=== PATIENT | male | born 1955 | race Caucasian/White ===

== ENCOUNTER 2022-05-24 18:52 | Inpatient (IN) | payer MEDICAID ==
[~2022-05-24] VITALS: Ht 172.7 cm; Wt 62.6 kg
--- NOTE | 2022-05-24 19:05 | NUR ---
DR. BOYD AT BEDSIDE FOR EVAL.
--- NOTE | 2022-05-24 19:05 | NUR ---
BIBRA[address] FROM [address] FOR C/O GEN BODY WEAKNESS X FEW DAYS. HX ETOH. PT A/OX4. TOLERATING R/A WELL WITH NO SOB. CONNECTED PT TO POX AND MONITOR.
--- NOTE | 2022-05-24 19:16 | NUR ---
MALT HOUSE KILN OPERATOR AT PT'S BEDSIDE
--- NOTE | 2022-05-24 19:28 | NUR ---
LAC #20G S/L BLOOD COLLECTED AND SENT TO LAB
[2022-05-24] MEDS ORDERED: IV NS 0.9% 1,000 ML IV ONE (19:30)
[2022-05-24 19:51] LABS: BASOPHILS # (AUTO) 0.1 K/uL (0.0-0.2); BASOPHILS % (AUTO) 0.8 % (0.0-2.0); EOSINOPHILS % (AUTO) 0.7 % (0.0-6.0); LYMPHOCYTES # (AUTO) 1.5 K/uL (0.8-4.8); LYMPHOCYTES % (AUTO) 12.4 % (20.0-44.0); MEAN CORPUSCULAR HGB CONC 34 g/dl (31.0-36.0); MEAN CORPUSCULAR VOLUME 104 fL (80-96); MONOCYTES # (AUTO) 0.4 K/uL (0.1-1.30); MONOCYTES % (AUTO) 3.3 % (2.0-12.0); NEUTROPHILS # (AUTO) 9.9 K/uL (1.8-8.9); NEUTROPHILS % (AUTO) 82.8 % (43.0-81.0); PLATELET COUNT (AUTO) 430 K/uL (150-450); WHITE BLOOD COUNT (AUTO) 11.9 K/uL (4.3-11.0)
[2022-05-24 19:53] LABS: HEMATOCRIT 16 % (39-51); HEMOGLOBIN 5.5 g/dL (13.5-17.5); RED BLOOD CELL COUNT(AUTO) 1.57 MIL/uL (4.5-6.0)
--- NOTE | 2022-05-24 19:59 | NUR ---
COVID SWAB COLLECTED AND SENT TO LAB
[2022-05-24 20:09] LABS: CALCIUM, SERUM 8.4 mg/dL (8.5-10.1); CREATININE 1.3 mg/dL (0.6-1.3)
--- NOTE | 2022-05-24 20:15 | NUR ---
PT SIGNED BLOOD TRANSFUSION CONSENT FORM; VERBALIZED UNDERSTANDING
[2022-05-24 20:17] LABS: BAND % (MANUAL) 2 % (0.0-5.0); LYMPHOCYTES % (MANUAL) 12 % (16-48); MONOCYTES % (MANUAL) 6 % (0-11.0); NEUTROPHILS % (MANUAL) 80 (42-76)
[2022-05-24 20:43] LABS: POTASSIUM 3.3 mmol/L (3.5-5.1)
[2022-05-24 20:47] LABS: ALBUMIN 2.6 g/dL (3.4-5.0); BILIRUBIN,DIRECT 0.1 mg/dL (0.0-0.2); BILIRUBIN,TOTAL 0.2 mg/dL (0.2-1.0); TOTAL PROTEIN, SERUM 5.8 g/dL (6.4-8.2)
--- NOTE | 2022-05-24 22:30 | NUR ---
RBC BLOOD TRANSFUSION INITIATED HGB 5.5. VSS. WILL MONITOR FOR ADVERSE REACTIONS.
--- NOTE | 2022-05-24 23:00 | NUR ---
NO ADVERSE REACTIONS NOTED AT THIS TIME. PT TOLERATING BLOOD TRANSFUSION WELL. WILL CONTINUE TO MONITOR.
--- NOTE | 2022-05-24 23:20 | NUR ---
MRSA SWAB COLLECTED AND SENT TO LAB. PATIENT'S BELONGINGS LIST DONE.
--- NOTE | 2022-05-24 23:22 | NUR ---
REPORT GIVEN TO PAULA HERNANDEZ RN FOR SHARLA
[2022-05-24] MEDS ORDERED: ONDANSETRON HCL/PF 4 MG/2 ML VIAL IVP PRN (23:30)
--- NOTE | 2022-05-24 23:48 | NUR ---
PT TRANSFERRED TO [facility] VIA ACLS PROTOCOL WITH BLOOD TRANSFUSION. VSS. ALL BELONGINGS WITH PT. PT TOLERATED TRANSFER WELL
--- NOTE | 2022-05-24 23:55 | NUR ---
RN NOTE RECEIVED 66 Y M PATIENT FROM ER A/O X4,TRANSPORTED VIA GURNEY ASSISTED WITH 2 ER STAFF, ON RA TOLERATING WELL, PATIENT ABLE TO MAKE NEEDS KNOWN, ABLE TO AMBULATE WITH ASSIST, IV ACCESS ON LAC #20G WITH PRBC RUNNING AT 100 ML/HR INFUSING WELL, NO COMPLAINTS OF PAIN AT THIS TIME, NO S/SX OF RESPIRATORY DISTRESS, ORIENTED TO THE UNIT, INITIAL PHYSICAL ASSESSMENT DONE, PICTURES TAKEN AND PLACED ON CHART, CALL LIGHT WITHIN REACH, BED IN LOWEST AND LOCKED POSITION, WILL CONT TO MONITOR THROUGHOUT THE SHIFT.
[2022-05-25] VITALS (10 sets, daily range): BP systolic 89–106; BP diastolic 58–73
[2022-05-25] MEDS ORDERED: POTASSIUM CHLORIDE 20 MEQ TAB.PRT.SR PO ONE (00:22)
[2022-05-25] MEDS: IV NS 0.9% 1,000 ML IV PRN (00:25)
--- NOTE | 2022-05-25 02:00 | NUR ---
RN NOTE PRBC TRANSFUSION DONE, PATIENT ABLE TO TOLERATE IT WITHOUT COMPLAINTS OF ADVERSE REACTION. V/S TAKEN AT 98.1, 102/67, 77, RR 20, SATING 100 %. WILL CONT TO MONITOR.
[2022-05-25 07:13] LABS: CREATININE 0.9 mg/dL (0.6-1.3); MAGNESIUM 1.5 mg/dL (1.8-2.4); PHOSPHORUS 3.8 mg/dL (2.5-4.9); POTASSIUM 3.7 mmol/L (3.5-5.1)
[2022-05-25 07:15] LABS: BASOPHILS # (AUTO) 0.1 K/uL (0.0-0.2); BASOPHILS % (AUTO) 0.8 % (0.0-2.0); EOSINOPHILS % (AUTO) 1.3 % (0.0-6.0); LYMPHOCYTES # (AUTO) 1.6 K/uL (0.8-4.8); LYMPHOCYTES % (AUTO) 15.9 % (20.0-44.0); MEAN CORPUSCULAR HGB CONC 35 g/dl (31.0-36.0); MEAN CORPUSCULAR VOLUME 105 fL (80-96); MONOCYTES # (AUTO) 0.3 K/uL (0.1-1.30); MONOCYTES % (AUTO) 2.7 % (2.0-12.0); NEUTROPHILS # (AUTO) 7.9 K/uL (1.8-8.9); NEUTROPHILS % (AUTO) 79.3 % (43.0-81.0); PLATELET COUNT (AUTO) 358 K/uL (150-450); WHITE BLOOD COUNT (AUTO) 9.9 K/uL (4.3-11.0)
[2022-05-25 07:33] LABS: RED BLOOD CELL COUNT(AUTO) 1.62 MIL/uL (4.5-6.0)
[2022-05-25 07:38] LABS: HEMATOCRIT 17 % (39-51)
--- NOTE | 2022-05-25 07:39 | NUR ---
RN OPENING NOTE RECEIVED PATIENT REPORT FROM NIGHTSHIFT RN. PATIENT A/O X4,ON RA TOLERATING WELL, PATIENT ABLE TO MAKE NEEDS KNOWN, ABLE TO AMBULATE WITH ASSIST, IV ACCESS ON LAC #20G INFUSING NORMAL SALINE AT 75 MLS/HR. NO COMPLAINTS OF PAIN AT THIS TIME, NO S/SX OF RESPIRATORY DISTRESS. CALL LIGHT WITHIN REACH, BED IN LOWEST AND LOCKED POSITION, WILL CONTINUE PLAN OF CARE AND ANTICIPATE NEEDS.
[2022-05-25] MEDS: PANTOPRAZOLE 40 MG TABLET.DR PO SCH (08:02)
[2022-05-25] MEDS ORDERED: [UNRECOGNIZED DRUG - REMARK] PO (08:19)
[2022-05-25] MEDS ORDERED: [UNRECOGNIZED DRUG - REMARK] PO (08:19)
[2022-05-25] MEDS ORDERED: ASPI-1169 PO (08:19)
[2022-05-25] MEDS ORDERED: OCTREOTIDE 500 MCG in IV NS 0.9% 99 ML IV PRN (09:30)
[2022-05-25] MEDS ORDERED: Magnesium 1GM/D5W 100ML PREMIX 100 ML IV SCH (10:00)
[2022-05-25] MEDS: OCTREOTIDE 1,250 MCG in IV NS 0.9% 247.5 ML IV PRN (10:22)
--- NOTE | 2022-05-25 10:28 | NUR ---
CLARIFIED WITH PHARMACY THAT WE DONT TITRATE SANDOSTATIN,PER PHARMACIST KEEP IT AT 25MCG/HR= TO 5ML/HR.
[2022-05-25] MEDS: ACETAMINOPHEN 325 MG TABLET PO PRN ×2 (10:39→21:46)
--- NOTE | 2022-05-25 14:55 | NUR ---
SS received consult for homelessness. Will follow-up at a later time.
--- NOTE | 2022-05-25 18:43 | NUR ---
RN CLOSING NOTE PATIENT REMAINS IN BED, A/O X4,ON ROOM AIR WITH OXYGEN SATURATION AT 100%. PATIENT ABLE TO MAKE NEEDS KNOWN, ABLE TO AMBULATE WITH ASSIST, IV ACCESS ON LAC #20G INFUSING NORMAL SALINE AT 75 MLS/HR AND SANDOSTATIN AT 5MCH/HR. NO COMPLAINTS OF PAIN AT THIS TIME, NO S/SX OF RESPIRATORY DISTRESS. CALL LIGHT WITHIN REACH, BED IN LOWEST AND LOCKED POSITION, WILL ENDORSE TO NIGHTSHIFT RN FOR CONTINUATION OF CARE.
--- NOTE | 2022-05-25 19:30 | NUR ---
ECOLOGIST TECHNICIAN OPENING NOTE RECEIVED PATIENT RESTING IN BED, PATIENT A/O X4, ON RA TOLERATING WELL, PATIENT ABLE TO MAKE NEEDS KNOWN, ABLE TO AMBULATE WITH ASSIST, IV ACCESS ON LAC #20G INFUSING NORMAL SALINE AT 75 MLS/HR. NO COMPLAINTS OF PAIN AT THIS TIME, NO S/SX OF RESPIRATORY DISTRESS. CALL LIGHT WITHIN REACH, BED IN LOWEST AND LOCKED POSITION, WILL CONTINUE TO MONITOR THROUGHOUT THE SHIFT.
[2022-05-25 19:55] LABS: HEMOGLOBIN 7.7 g/dL (13.5-17.5)
[2022-05-26] VITALS: BP 99/71
[2022-05-26] MEDS: IV NS 0.9% 1,000 ML IV PRN ×2 (01:21→17:11)
[2022-05-26 04:00] VITALS: BP 106/74
--- NOTE | 2022-05-26 06:44 | NUR ---
CHIEF FISHERY DIVISION CLOSING NOTE NO SIGNIFICANT CHANGES THROUGHOUT THE SHIFT. PATIENT SLEEPING IN BED A/O X4, ON RA TOLERATING WELL, PATIENT ABLE TO MAKE NEEDS KNOWN, ABLE TO AMBULATE WITH ASSIST, IV ACCESS ON LAC #20G INFUSING NORMAL SALINE AT 75 MLS/HR. NO COMPLAINTS OF PAIN NOTED, NO S/SX OF RESPIRATORY DISTRESS AT THIS TIME. ALL NEEDS ATTENDED, KEPT DRY AND CLEAN, CALL LIGHT WITHIN REACH, BED IN LOWEST AND LOCKED POSITION, WILL ENDORSE TO AM SHIFT NURSE.
--- NOTE | 2022-05-26 07:42 | NUR ---
tele marketing executive note patient in bed, alert oriented, on tele monitor sr , patient on ra ,lt ac hl intact and flushed well, on ivf and Sandostatin drip as ordered, bed on ,lowest and locked position , NO SOB NOTED AT THIS TIME, CALL LIGHT WITHIN REACH , WILL CONT TO MONITOR CLOSELY SAFETY MEASURE PROVIDED
[2022-05-26 08:00] VITALS: BP 111/68
[2022-05-26] MEDS: PANTOPRAZOLE 40 MG TABLET.DR PO SCH (08:07)
[2022-05-26 09:39] LABS: BASOPHILS % (AUTO) 0.5 % (0.0-2.0); EOSINOPHILS % (AUTO) 0.9 % (0.0-6.0); HEMATOCRIT 23 % (39-51); HEMOGLOBIN 7.7 g/dL (13.5-17.5); LYMPHOCYTES # (AUTO) 0.9 K/uL (0.8-4.8); LYMPHOCYTES % (AUTO) 11.3 % (20.0-44.0); MEAN CORPUSCULAR HGB CONC 34 g/dl (31.0-36.0); MEAN CORPUSCULAR VOLUME 102 fL (80-96); MONOCYTES # (AUTO) 0.3 K/uL (0.1-1.30); MONOCYTES % (AUTO) 3.2 % (2.0-12.0); NEUTROPHILS # (AUTO) 6.6 K/uL (1.8-8.9); NEUTROPHILS % (AUTO) 84.1 % (43.0-81.0); PLATELET COUNT (AUTO) 343 K/uL (150-450); RED BLOOD CELL COUNT(AUTO) 2.23 MIL/uL (4.5-6.0); WHITE BLOOD COUNT (AUTO) 7.9 K/uL (4.3-11.0)
[2022-05-26 09:58] LABS: CALCIUM, SERUM 8.2 mg/dL (8.5-10.1); CREATININE 0.8 mg/dL (0.6-1.3); POTASSIUM 5.4 mmol/L (3.5-5.1)
--- NOTE | 2022-05-26 10:24 | NUR ---
television specialist note resting comfortably not in distress will monitor
[2022-05-26 12:00] VITALS: BP 108/74
--- NOTE | 2022-05-26 12:17 | NUR ---
telephone operator chief note spoke with dr sanchez notified that k 5.4 with order Kayexalate 30 mg time one , will f]\u
[2022-05-26] MEDS ORDERED: SODIUM POLYSTYRENE SULFONATE 15 G/60 ML BOTTLE PO SCH (12:30)
[2022-05-26] MEDS ORDERED: Magnesium 1GM/D5W 100ML PREMIX 100 ML IV SCH (12:30)
[2022-05-26] MEDS ORDERED: MAGNESIUM OXIDE 400 MG TABLET PO ONE (12:30)
[2022-05-26] MEDS: OCTREOTIDE 1,250 MCG in IV NS 0.9% 247.5 ML IV PRN ×2 (12:44→14:45)
--- NOTE | 2022-05-26 13:03 | NUR ---
EXEC. CREATIVE DIRECTOR NOTE CALLED TO DR KWON NOTIFIED THAT PATIENT HAS DARK COLOR STOOL WITH ORDER CO COLLECT STOOL FOR OB, WILL F\U
--- NOTE | 2022-05-26 13:14 | NUR ---
telecommunication lines repairer note new new chandrakant [address] fa inserted with good blood return
[2022-05-26 16:00] VITALS: BP 118/84
[2022-05-26] MEDS: ENSURE ENLIVE 237 ML LIQUID (VANILLA) PO SCH (17:08)
--- NOTE | 2022-05-26 17:29 | NUR ---
clerk television production note having dinner , able to eat self, cont on ivf as ordered and Sandostatin drip, all needs attended,call light within reach
--- NOTE | 2022-05-26 18:15 | NUR ---
SAND MIXER MACHINE NOTE RESTING IN BED , ALL NEEDS ATTENDED , NOT IN DISTRESS. ON RA ,NO SOB NOTED AT THIS TIME, RESPIRATION EVEN NONLABORED, ON IVF AND SANDOSTATIN DRIP ORDERED,UNABLE TO COLLECT STOOL SAMPLE FOR OB ,WILL ENFORCED NEXT SHIFT RN , CALL LIGHT WITHIN REACH, WILL CONT TO MONITOR
[2022-05-26 20:00] VITALS: BP 108/78
--- NOTE | 2022-05-26 20:09 | NUR ---
HYDROMETEOROLOGICAL TECHNICIAN OPENING NOTES: RECEIVED PATIENT AWAKE IN BED, BED IN LOW POSITION, CALL LIGHT WITHIN REACH, NO COMPLAIN OF PAIN AND DISCOMFORT AT THIS TIME ON ROOM AIR SATURATING WELL, PATIENT WITH RFA#20 WITH ONGOING IV LINE OF NSS@75ML/HR AND SANDOST OF 25ML/HR INFUSING WELL, PATIENT IS AMBULATORY WITH ASSISTANCE FROM BEDSIDE TO COMMODE, PATIENT KEPT CLEAN AND DRY ALL NEEDS MET WILL CONTINUE TO MONITOR.
[2022-05-26] MEDS ORDERED: diphenhydrAMINE HCL 25 MG CAPSULE PO ONE (23:00)
[2022-05-27] VITALS: BP 114/73
[2022-05-27 04:00] VITALS: BP 122/74
[2022-05-27 06:49] LABS: BASOPHILS % (AUTO) 0.6 % (0.0-2.0); EOSINOPHILS % (AUTO) 1.5 % (0.0-6.0); HEMATOCRIT 23 % (39-51); LYMPHOCYTES % (AUTO) 14.9 % (20.0-44.0); MEAN CORPUSCULAR HGB CONC 34 g/dl (31.0-36.0); MEAN CORPUSCULAR VOLUME 103 fL (80-96); MONOCYTES # (AUTO) 0.4 K/uL (0.1-1.30); MONOCYTES % (AUTO) 5.1 % (2.0-12.0); NEUTROPHILS # (AUTO) 5.4 K/uL (1.8-8.9); NEUTROPHILS % (AUTO) 77.9 % (43.0-81.0); PLATELET COUNT (AUTO) 340 K/uL (150-450); RED BLOOD CELL COUNT(AUTO) 2.27 MIL/uL (4.5-6.0); WHITE BLOOD COUNT (AUTO) 6.9 K/uL (4.3-11.0)
--- NOTE | 2022-05-27 06:52 | NUR ---
KNOCKER OFF CLOSING NOTES: PATIENT SLEEP IN BED COMFORTABLY, AROUSABLE TO VERBAL STIMULI, BED IN LOW POSITION CALL LIGHTS WITHIN REACH, ON ROOM AIR SATURATING WELL, NO COMPLAIN OF PAIN AND DISCOMFORT AT THIS TIME, PATIENT ON TELE MONITOR- SB-54, NO SYMPTOMS WAS OBSERVED, KEPT CLEAN AND DRY ALL NEEDS MET ENDORSE TO INCOMING SHIFT.
[2022-05-27 07:15] LABS: CALCIUM, SERUM 8.2 mg/dL (8.5-10.1); CREATININE 0.7 mg/dL (0.6-1.3); MAGNESIUM 1.6 mg/dL (1.8-2.4); POTASSIUM 4.8 mmol/L (3.5-5.1)
--- NOTE | 2022-05-27 07:42 | NUR ---
CLINICAL NURSE LEADER OPENING NOTE PATIENT IN BED. PATIENT IS ALERT AND ORIENTED X4.PATIENT COMPLAINS OF NO PAIN. PATIENT IS ON ROOM AIR.PATIENT HAS IV ON LEFT AC 20 GAUGE. ALL SAFETY MEASURES. CALL LIGHT WITHIN REACH,BED LOCKED IN LOWEST POSITION. SIDE RAILS UPX2.
[2022-05-27] MEDS: IV NS 0.9% 1,000 ML IV PRN (07:54)
[2022-05-27 08:00] VITALS: BP 106/71
[2022-05-27] MEDS: PANTOPRAZOLE 40 MG TABLET.DR PO SCH (08:04)
[2022-05-27] MEDS: ENSURE ENLIVE 237 ML LIQUID (VANILLA) PO SCH ×2 (08:05→17:13)
[2022-05-27] MEDS ORDERED: MAGNESIUM OXIDE 400 MG TABLET PO ONE (10:00)
[2022-05-27 12:00] VITALS: BP 115/86
[2022-05-27] MEDS ORDERED: ANESTHESIA TRAY IN PYXIS 1 EA TRAY MC ONE (12:36)
--- NOTE | 2022-05-27 13:16 | NUR ---
telephone advice nurse note Dr. tovar ordered EGD. obtain consent for EGD. NPO after midnight
[2022-05-27] MEDS: OCTREOTIDE 1,250 MCG in IV NS 0.9% 247.5 ML IV PRN (14:28)
--- NOTE | 2022-05-27 14:36 | NUR ---
"SS Note: SS consult requested for homelessness. Pt. Is a 66-year-old male. Per EMR, pt. was brought in by ambulance for generalized weakness. Pt. presents alert and oriented x4 (self, place, time, situation). Pt. appeared groomed, made appropriate eye-contact, and was cooperative during interview. Pt. reported no hx of mental health. Pt. denies suicidal ideation and homicidal ideation. Pt. reported no auditory hallucinations, visual hallucinations, paranoia, or delusions. SW explored pt.s substance use. Per pt., he drinks a pint of liquor a day. Pt. stated that this been going on for years, but he does not want to get help. Pt. is homeless but stays with a friend or brother Reji when he can. Per pt., once he gets discharge, he will go back to his brothers house. Pt. receives adequate support from his brother. Pt. is ambulatory and is independent his ADLs. Plan: SW provided available resources and pt. accepted. SW explained the retirement intake process, pt. expressed understanding. Once discharge, per pt., [facility] Resources Provided: Year-round shelters: [place] [address] [place] [address] ; [place] [facility] [address] [place] [address]; [facility] [id number] [facility] [address] Winter Shelters: [facility] Provider: [facility] Address: [address] [place] [address], [facility] # of Beds: 47 Population Served: [facility] 6 | [facility] Katelin Cummings [place] Provider: [facility] Address: [address], [address] # of Beds: 66 Population Served: [facility] [place] Provider: [facility] Address: [address] [facility], [address] # of Beds: 56 Population Served: [facility] [place] Provider: / [facility] Address: [address] [facility], [address] # of Beds: 49 Population Served: [facility] 8 | [place] Provider: [facility] Address: [facility]5 [facility] Gibbs # of Beds: 37 Population Served: [facility] Hygiene: [facility]: [address] [place] ; [place] [facility] [address] [facility] ; [facility] [address] [facility] . Food Resources: [place] [facility] at [facility]- [address] [place]; Meet Each Need with Dignity ([facility]) [address] [facility]; [facility] Food Pantry [address] [facility]; [facility] [address] [facility]. Mental Health resources provided: [facility] [address] [place], [place] [id number] ; [facility] [address] [facility] [address], [place], [place] [phone] ; [facility] [address] [place], [place] [phone] ; [facility] [address] [place], [place] [phone] Healthcare Clinics: [facility] [address] [facility], [address] [place]. [place] ; [facility] [address] [facility] [address] [place] [address]; [facility] Health [place] [address] [facility]. [place] [phone] Counseling--Outpatient [facility] [address] [facility], [address] [place], [place] [address] (Specializes in in-depth psychotherapy for emotional distress: anxiety, depression, interpersonal conflicts, life transitions, childhood abuse) [facility] [address] [place] [address] (Assist with solving problem marital difficulties, separation & divorce, aging parents, & grief, chronic & terminal illness) [facility] [address] [place], [place] [address] (Deal with loss & grief, anxiety, marital difficulties) Homebound/Mental Health Services [address] [facility] [address] [place], [place] [phone] (Provide in-home mental services to people who are incapable of leaving their homes) [facility] Needs of the Elderly Senior Service/Resource Center [address] [place] [address] [facility] [address] [place], [place] [address] PSYCHIATRIC OUTPATIENT SERVICES [facility] Partial Hospitalization and Intensive Outpatient Program (Managed Care and [facility] Only)[address] [address] [facility] [phone] [facility] Partial Hospitalization and Outpatient [id number] [facility] [address] [place], [place] [phone] [facility] [place] Axq[address] [facility] [address] [place], [place] [phone] [facility] Partial Hospitalization and Outpatient [id number] [place], [phone] Substance Abuse resources provided included: [facility] Substance Abuse Self-Helpline (SASH) ; [facility]LP [address] [facility]. [place] [address] ; [facility] [address] [facility] [address] ; [facility] [address] [facility] [address] ; [facility] [address] [facility] [address] ; [facility] 49[address] Ye[address]avez [facility] [phone] ; [facility] [address] [facility] [phone] ; [facility] Substance Abuse Helpline(SAS)[facility] [place] ; [facility] ; [facility] [place]; [facility] [place]; [facility] [place]; [facility] Yeison Chavez; [facility] [place]; [place] [facility]; [facility] [place]; [facility] [place], [facility]. [facility] Saira; Alcoholics Anonymous -SFV; Ia-Uwnh-Kupfpac ; Marijuana Anonymous -SFV; Narcotics Anonymous www.na.org;"
--- NOTE | 2022-05-27 15:48 | NUR ---
telemarketing sales representative note resting comfortably at this time using urinal well ,not in distress
[2022-05-27 16:00] VITALS: BP 125/87
--- NOTE | 2022-05-27 18:47 | NUR ---
CLIN NURSE SPEC CLOSING NOTE PATIENT IN BED. PATIENT IS ALERT AND ORIENTED X4.PATIENT COMPLAINS OF NO PAIN. PATIENT IS ON ROOM AIR 100 %. PATIENT IS ON TELE MONITOR SINUS RHYTHM. PATIENT HAS URINAL AT BEDSIDE.PATIENT HAS LOWER LEG SCAB. PATIENT HAS SANDUST RUNNING AT 25ML/HR. PATIENT HAS IV ON RIGHT AC 20 GAUGE. IV PATENT AND FLUSHING WELL. PATIENT IS NPO AFTER MIDNIGHT FOR EGD.ALL SAFETY MEASURES. CALL LIGHT WITHIN REACH,BED LOCKED IN LOWEST POSITION. SIDE RAILS UPX2.
--- NOTE | 2022-05-27 19:30 | NUR ---
TELE/RN OPENING NOTE RECEIVED PATIENT RESTING IN BED. AWAKE, ALERT AND ORIENTED X 4. ABLE TO MAKE NEEDS KNOWN. DENIES PAIN AT THIS TIME. CONTINUES ON ROOM AIR WITH NO S/SX OF RESPIRATORY DISTRESS NOTED. IV ACCESS TO RIGHT FOREARM #24G INTACT AND PATENT. CONTINUES ON IVF NS @ 75ML/HR. CONTINUES ON SANDOSTATIN IV @ 25ML/HR. PATIENT TO BE NPO POST MIDNIGHT FOR PLANNED EGD PROCEDURE IN AM. PATIENT AWARE AND AGREEABLE. CONSENT IS IN CHART. CALL LIGHT WITHIN REACH. ASPIRATION, FALL AND SAFETY PRECAUTIONS MAINTAINED. ALL NEEDS ATTENDED TO AT THIS TIME.
[2022-05-27 20:00] VITALS: BP 124/90
[2022-05-27] MEDS: TEMAZEPAM 7.5 MG CAPSULE PO PRN (21:44)
--- NOTE | 2022-05-27 22:30 | NUR ---
TELE/RN NOTE PATIENT REQUESTING SLEEPING MEDICATION. NOTIFIED COMPLETION SUPERVISOR TILE SORTER EMEKA WITH NEW ORDER FOR TEMAZEPAM 7.5MG PO QHS PRN. ORDER INPUTTED AND CARRIED OUT.
--- NOTE | 2022-05-27 23:00 | NUR ---
TELE/RN NOTE SECOND PIV PLACED TO LEFT FOREARM #20G FOR PROCEDURE IN AM. PATIENT TOLERATED WELL. IV SITE FLUSHES GOOD. REINFORCED DRESSING. BOTH IV MEDS INFUSING THROUGH RIGHT FOREARM IV.
[2022-05-28] VITALS (7 sets, daily range): BP systolic 101–132; BP diastolic 64–92
--- NOTE | 2022-05-28 02:00 | NUR ---
TELE/RN NOTE COLLECTED STOOL SAMPLE FOR OCCULT BLOOD. PLACED IN LAB [place].
--- NOTE | 2022-05-28 06:20 | NUR ---
TELE/RN CLOSING NOTE PATIENT CURRENTLY SLEEPING IN BED. ALERT AND ORIENTED X 4. ABLE TO MAKE NEEDS KNOWN. DENIES PAIN AT THIS TIME. CONTINUES ON ROOM AIR WITH NO S/SX OF RESPIRATORY DISTRESS NOTED. IV ACCESS TO RIGHT FOREARM #24G AND LEFT FOREARM #20G BOTH INTACT AND PATENT. CONTINUES ON IVF NS @ 75ML/HR. CONTINUES ON SANDOSTATIN IV @ 25ML/HR. CONTINUES ON NPO STATUS FOR PLANNED EGD PROCEDURE IN TODAY. CONSENT AND SURGICAL CHECKLIST IN CHART. CALL LIGHT WITHIN REACH. ASPIRATION, FALL AND SAFETY PRECAUTIONS MAINTAINED. WILL ENDORSE PLAN OF CARE TO ONCOMING SHIFT RN.
[2022-05-28 06:35] LABS: BASOPHILS # (AUTO) 0.1 K/uL (0.0-0.2); BASOPHILS % (AUTO) 0.7 % (0.0-2.0); EOSINOPHILS % (AUTO) 1.7 % (0.0-6.0); HEMATOCRIT 24 % (39-51); HEMOGLOBIN 8.2 g/dL (13.5-17.5); LYMPHOCYTES # (AUTO) 0.7 K/uL (0.8-4.8); LYMPHOCYTES % (AUTO) 9.9 % (20.0-44.0); MEAN CORPUSCULAR HGB CONC 35 g/dl (31.0-36.0); MEAN CORPUSCULAR VOLUME 103 fL (80-96); MONOCYTES # (AUTO) 0.3 K/uL (0.1-1.30); MONOCYTES % (AUTO) 4.5 % (2.0-12.0); NEUTROPHILS # (AUTO) 6.1 K/uL (1.8-8.9); NEUTROPHILS % (AUTO) 83.2 % (43.0-81.0); PLATELET COUNT (AUTO) 287 K/uL (150-450); RED BLOOD CELL COUNT(AUTO) 2.29 MIL/uL (4.5-6.0); WHITE BLOOD COUNT (AUTO) 7.3 K/uL (4.3-11.0)
[2022-05-28] MEDS: IV NS 0.9% 1,000 ML IV PRN (06:35)
[2022-05-28 06:48] LABS: CALCIUM, SERUM 8.3 mg/dL (8.5-10.1); CREATININE 0.6 mg/dL (0.6-1.3); POTASSIUM 4.1 mmol/L (3.5-5.1)
[2022-05-28] MEDS: PANTOPRAZOLE 40 MG TABLET.DR PO SCH (07:30)
--- NOTE | 2022-05-28 07:30 | NUR ---
RN OPENING NOTE PATIENT IS AWAKE IN BED, ALERT AND ORIENTED X 4. ON ROOM AIR,WITH OXYGEN SATURATION AT 98%. SINUS RHYTHM ON ORTHOTIC PRACTITIONER. WITH LEFT FOREARM 20G SALINE LOCK, INTACT AND PATENT. WITH RIGHT FOREARM GAUGE 24 IV LINE INFUSING WITH NS AT 75 ML/HR AND SANDOSTATIN AT 25 ML/HR. DENIES PAIN, BREATHING UNLABORED AND NOT IN ANY FORM OF DISTRESS. BED IS LOCKED IN LOWEST POSITION, 3 SIDE RAILS UP, CALL LIGHT WITHIN REACH. WILL CONTINUE TO MONITOR THROUGHOUT SHIFT.
[2022-05-28] MEDS: ENSURE ENLIVE 237 ML LIQUID (VANILLA) PO SCH ×2 (08:00→17:51)
[2022-05-28 08:12] LABS: ALBUMIN 2.3 g/dL (3.4-5.0); BILIRUBIN,DIRECT 0.1 mg/dL (0.0-0.2); BILIRUBIN,TOTAL 0.3 mg/dL (0.2-1.0); TOTAL PROTEIN, SERUM 5.4 g/dL (6.4-8.2)
--- NOTE | 2022-05-28 09:00 | NUR ---
RN NOTE PATIENT LEFT THE UNIT FOR EGD PROCEDURE ACCOMPANIED BY 2 OR STAFF. PATIENT IN STABLE CONDITION.
--- NOTE | 2022-05-28 10:30 | NUR ---
RN NOTE RECEIVED PATIENT FROM OR FOLLOWING EGD PROCEDURE. PATIENT IN STABLE CONDITION.
[2022-05-28 11:49] LABS: OCCULT BLOOD STOOL POSITIVE (NEGATIVE)
[2022-05-28] MEDS: OCTREOTIDE 1,250 MCG in IV NS 0.9% 247.5 ML IV PRN (16:27)
--- NOTE | 2022-05-28 18:37 | NUR ---
RN CLOSING NOTE PATIENT IS RESTING COMFORTABLY IN BED AND REMAINED IN STABLE CONDITION. TOLERATES ROOM AIR, WITH O2 SATURATION AT 99%. DENIES PAIN, BREATHING UNLABORED AND NOT IN ANY FORM OF DISTRESS. IV LINE ON BOTH ARMS INTACT AND PATENT. BED IS LOCKED IN LOWEST POSITION, 3 SIDE RAILS UP, CALL LIGHT WITHIN REACH. WILL ENDORSE TO CREDIT VERIFICATION CLERK NURSE.
--- NOTE | 2022-05-28 19:20 | NUR ---
RN NOTE PT AWAKE IN BED, WATCHING TV. A/OX4. RESPIRATIONS EVEN/UNLABORED. PT DENIES PAIN AT THIS TIME. IV SITE: L-FA #20G AND R-FA #24G BOTH INTACT/PATENT, INFUSING IVF NS @75ML/HR AND ON SANDOSTATIN 25MCG/HR. ON TELE MONITOR, READING SB, HR 55. PT IN NO ACUTE DISTRESS. SAFETY MEASURES IN PLACE, BED IN LOWEST LOCKED POSITION, S/R UPX2, CALL LIGHT WITHIN REACH. WILL CONT TO MONITOR.
[2022-05-28] MEDS: TEMAZEPAM 7.5 MG CAPSULE PO PRN (21:37)
[2022-05-29] VITALS: BP 130/82
[2022-05-29] MEDS: IV NS 0.9% 1,000 ML IV PRN (00:14)
[2022-05-29 04:00] VITALS: BP 121/92
--- NOTE | 2022-05-29 07:10 | NUR ---
RN NOTE PT RESTING IN BED, EASILY AROUSABLE TO STIMULI. DENIES PAIN, DENIES SOB. PT SLEPT WELL DURING THE NIGHT. NO ACUTE DISTRESS NOTED. ALL NEEDS ATTENDED TO. SAFETY MEASURES MAINTAINED.
[2022-05-29 07:24] LABS: BASOPHILS % (AUTO) 0.5 % (0.0-2.0); EOSINOPHILS % (AUTO) 3.5 % (0.0-6.0); HEMATOCRIT 22 % (39-51); HEMOGLOBIN 7.6 g/dL (13.5-17.5); LYMPHOCYTES # (AUTO) 0.9 K/uL (0.8-4.8); LYMPHOCYTES % (AUTO) 13.5 % (20.0-44.0); MEAN CORPUSCULAR HGB CONC 35 g/dl (31.0-36.0); MEAN CORPUSCULAR VOLUME 102 fL (80-96); MONOCYTES # (AUTO) 0.4 K/uL (0.1-1.30); NEUTROPHILS # (AUTO) 4.9 K/uL (1.8-8.9); NEUTROPHILS % (AUTO) 76.5 % (43.0-81.0); PLATELET COUNT (AUTO) 280 K/uL (150-450); RED BLOOD CELL COUNT(AUTO) 2.17 MIL/uL (4.5-6.0); WHITE BLOOD COUNT (AUTO) 6.3 K/uL (4.3-11.0)
[2022-05-29 07:47] LABS: CALCIUM, SERUM 7.4 mg/dL (8.5-10.1); CREATININE 0.6 mg/dL (0.6-1.3); POTASSIUM 4.1 mmol/L (3.5-5.1)
[2022-05-29] MEDS: ENSURE ENLIVE 237 ML LIQUID (VANILLA) PO SCH (07:58)
[2022-05-29] MEDS: PANTOPRAZOLE 40 MG TABLET.DR PO SCH (07:59)
[2022-05-29 08:00] VITALS: BP 123/88
[2022-05-29] MEDS ORDERED: PANT40TA2 PO (11:09)
[2022-05-29 12:00] VITALS: BP 133/75
[2022-05-29] MEDS ORDERED: OCTREOTIDE 500 MCG in IV NS 0.9% 99 ML IV PRN (16:00)
== END 2022-05-29 13:54 | disposition home or self-care (01) | DRG 241 ==
LOC: ER 18:54 → TELE1 23:01
PROVIDERS: ADMIT Nurse Practitioner Acute Care; ATTEND Internal Medicine
PROC: 30233N1 Transfusion of Nonautologous Red Blood Cells into Peripheral Vein, Percutaneous Approach (ICD-10-PCS; principal; 2022-05-24)
PROC: 0DB68ZX Excision of Stomach, Via Natural or Artificial Opening Endoscopic, Diagnostic (ICD-10-PCS; 2022-05-28)
DX: K29.71 Gastritis, unspecified, with bleeding (principal); N17.0 Acute kidney failure with tubular necrosis; E44.0 Moderate protein-calorie malnutrition; D64.9 Anemia, unspecified; Z20.822 Contact with and (suspected) exposure to COVID-19; I10 Essential (primary) hypertension; Z59.00 Homelessness unspecified; K31.84 Gastroparesis; E88.09 Other disorders of plasma-protein metabolism, not elsewhere classified; D72.829 Elevated white blood cell count, unspecified; E83.42 Hypomagnesemia; F10.11 Alcohol abuse, in remission; Y90.9 Presence of alcohol in blood, level not specified; E87.5 Hyperkalemia; E87.6 Hypokalemia
CPT/HCPCS: 36415; 71045-TC; 80048-TC; 80061-TC; 80076-TC; 82272-TC; 83735-TC; 84100-TC; 85025-TC; 85027-TC; 85610-TC; 85730-TC; 86850-TC; 87081-TC; 97116-TC; 97530-TC; C9803; G0378; J2354; J2704; J3475; J3490; J7030; J7050; P9016; Q0163